=== PATIENT | male | born 1940 | race Caucasian/White ===

== ENCOUNTER → 2019-12-29 | Outpatient (CLI) | payer OTHER ==
[~2019-12-29] MED LIST: ASPI-556 PO; BENA10TA77 PO; CEPH500B PO; DIGO125T71 PO; INSU100I15 SQ; ISOS60TA4 PO; LISI-613 PO; METO50TA18 PO; SUCR500T PO; TYLENOL PM PO; VITAMIN B12 PO; VITAMIN D PO; WARF7.5T49 PO; WARFARIN PO
== END | disposition home or self-care (01) ==
LOC: SHCH 13:53
PROVIDERS: ATTEND Internal Medicine Cardiovascular Disease
DX: I73.9 Peripheral vascular disease, unspecified (principal)
CPT/HCPCS: 93925